=== PATIENT | male | born 2000 | race Caucasian/White ===

== ENCOUNTER 2023-02-18 10:52 | Emergency (ER) | payer MEDICAID ==
[2023-02-18 11:26] VITALS: BP 119/66
--- NOTE | 2023-02-18 11:38 | ED Physician Documentation ---
PD HPI LOWER EXT INJURY - Stated complaint Stated Complaint: LT TOE PX - Chief complaint Chief Complaint: Trauma Ext - History obtained from History obtained from: Patient - History of Present Illness PD HPI LOW EXT INJURY LOCATION: Left, Toe Type of injury: Blunt / blow (he states his little toe got caught under door and twisted and bruised. Having pain with walking. Local swelling and bruising that has increased over the 1-2 days. Concern for fracture, and also supposed to work, which is walking/standing continually.) Where injury occurred: Home Timing - onset: How many days ago (2) Timing - duration: Days (2) Timing - details: Abrupt onset, Still present Worsened by: Moving, Palpating Associated symptoms: Swelling, Discolored. No: Weakness, Numbness Similar symptoms before: Has not had sx before Review of Systems Skin: denies: Abrasion (s), Laceration (s) Neurologic: denies: Focal weakness, Numbness PD PAST MEDICAL HISTORY - Past Medical History Past Medical History: No - Present Medications Home Medications: Ambulatory Orders Medication Instructions Recorded Confirmed No Known Home Medications 02/18/23 02/18/23 - Allergies Allergies/Adverse Reactions: Allergies Allergy/AdvReac Type Severity Reaction Status Date / Time No Known Drug Allergies Allergy Verified 02/18/23 11:07 PD ED PE NORMAL - Vitals Vital signs reviewed: Yes - General General: Alert and oriented X 3, No acute distress, Well developed/nourished - Derm Derm: Normal color, Warm and dry - Extremities Extremities: Other (The left little toe to has tenderness and bruising at the base of the toe and at the distal fifth metatarsal. No gross deformity. Pain with range of motion. Good color and capillary refill at the tip.) - Neuro Neuro: No motor deficit, No sensory deficit Results - Vitals Vitals: Vital Signs - 24 hr 02/18/23 11:08 Temperature 36.6 C Heart Rate 67 Respiratory 16 Rate Blood Pressure 119/66 O2 Saturation 98 Oxygen O2 Source Room air PD Medical Decision Making - ED course Complexity details: considered differential (struck toe with injury, has swelling and bruising and hurts with walking. Xray without fracture. Firm soled shoe given. He felt unable to work standing/walking all shift, so asked for work note. ), d/w patient Departure - Departure Disposition: 01 Home, Self Care Clinical Impression: Sprain of toe, fifth, left Qualifiers: Encounter type: initial encounter Qualified Code(s): S93.505A - Unspecified sprain of left lesser toe(s), initial encounter Condition: Stable Record reviewed to determine appropriate education?: Yes Instructions: ED Sprain Toe Comments: Your x-ray is normal without any signs of fracture or dislocation. The radiology report just came back as well which corroborates this. However it still injured and presume injury of the ligaments and muscles of the toe (sprain). This will still hurt for several days or up to a week or so. It should get better without much intervention. Activity as tolerated and I wrote a work note for couple of days. You can anchor tape the toe to the foot or vik tape it to the one next to it to reduce motion. Also the firm soled shoe (postop shoe) to help reduce flex movement with walking. I would anticipate improvement over several days to week. Progress activity as tolerated. Forms: Activity restrictions Discharge Date/Time: 02/18/23 12:04
--- NOTE | 2023-02-18 11:41 | XRAY Report ---
PROCEDURE: Foot 3 View LT INDICATIONS: Trauma TECHNIQUE: 3 views of the foot were acquired. COMPARISON: None. FINDINGS: Bones: No fractures or dislocations. No suspicious bony lesions. Soft tissues: No suspicious soft tissue calcifications or masses. IMPRESSION: No acute bony abnormality. If pain persists with conservative management, consider repeat radiographs in 10-14 days or cross-sectional imaging. Reviewed by: Damian Nolan MD on 02/18/2023 10:36 AM [place] Approved by: Damian Nolan MD on 02/18/2023 10:36 AM [facility] Station ID: [id number]
== END 2023-02-18 12:04 | disposition home or self-care (01) ==
LOC: ED 10:52
DX: S93.505A Unspecified sprain of left lesser toe(s), initial encounter (principal); W22.8XXA Striking against or struck by other objects, initial encounter
CPT/HCPCS: 99283